=== PATIENT | female | born 1960 | race Caucasian/White ===

== ENCOUNTER 2019-10-24 14:05 | Emergency (ER) | payer MEDICAID, OTHER ==
[2019-10-24 14:28] LABS: ABS Basophils 0.1 10^3/ul (0-0.2); ABS Eosinophils 0.5 10^3/ul (0-0.6); ABS Monocytes 0.5 10^3/ul (0-0.8); ABS Neutrophils 9.5 10^3/ul (1.5-7.7); Hematocrit 45 % (35-47); Hemoglobin 15.4 g/dL (12.0-16.0); Lymphocyte % 8.5 %; Mean Corpuscular HGB Conc 34 g/dL (31-36); Mean Corpuscular Hemoglobin 33 pg (27-31); Mean Corpuscular Volume 97 fL (80-97); Platelet Count 263 10^3/uL (150-450); Red Blood Count 4.62 10^6 /uL (3.70-4.87); Red Cell Distribution Width 13 % (10-15); White Blood Count 11.5 10^3/uL (3.5-10.8)
[2019-10-24 14:44] LABS: Albumin 4.9 g/dL (3.2-5.2); BUN/Creatinine Ratio 22.7 (8-20); Calcium 9.8 mg/dL (8.6-10.3); EGFR African American 110.5 (>60); EGFR Non-African American 91.4 (>60); Globulin 2.4 g/dL (2-4); Total Bilirubin 1.5 mg/dL (0.2-1.0); Total Protein 7.3 g/dL (6.4-8.9)
[2019-10-24] MEDS ORDERED: hydrALAZINE IV* 20 MG/ML VIAL IV SLOW PU ONE (15:00)
--- NOTE | 2019-10-24 15:07 | ED ---
Back Pain - HPI Summary HPI Summary: The patient is a 59 y/o F presenting to [facility] with a chief complaint of sudden onset right rib/flank pain onset at 1030 this morning. She reports that initially the pain was in the left scapula while sitting at rest in her car after eating a cookie, but then it moved to the right flank area and subsided. The pain then severely returned and worsened as it was painful to touch and with sitting, but now the pain has waned to 2/10 in severity from 8/10. She denies CP, dysuria, or hematuria. She has not experienced this before. No history of renal disease or calculi. She states she felt that her symptoms were related to eating. PMHx: HTN (medication compliant). Nonsmoker, daily EtOH, no substance use. Medications reviewed. Allergies noted. Blood pressure in room: 205/107 mmHg (right), 199/118 mmHg (left). On repeat w appropriate cuff BP 150 systolic both arms. - History of Current Complaint Chief Complaint: EDFlankPain Stated Complaint: SIDE PAIN PER PT Time Seen by Provider: 10/24/19 14:14 Hx Obtained From: Patient Onset/Duration: Sudden Onset, Lasting Hours Onset/Duration: Started Hours Ago Timing: Lasting Hours Back Pain Location: Is Discrete @ - right flank Severity Initially: Severe Severity Currently: Mild Pain Intensity: 2 Pain Scale Used: 0-10 Numeric Character: Sharp Aggravating Symptom(s): Other - sitting, to touch Alleviating Symptom(s): Rest Associated Signs And Symptoms: Positive: Flank Pain - right, Other - left scapular pain; Negative: dysuria, hematuria, CP - Allergies/Home Medications Allergies/Adverse Reactions: Allergies Allergy/AdvReac Type Severity Reaction Status Date / Time No Known Allergies Allergy Verified 10/24/19 14:10 Home Medications: Home Medications Albuterol HFA INHALER* [Ventolin HFA Inhaler*] 2 puff INH Q4H PRN 10/24/19 [ History Confirmed 10/24/19] Fluticasone HFA 110 mcg(NF) [Flovent HFA 110 mcg(NF)] 2 puff INH BID 10/24/19 [ History Confirmed 10/24/19] Valsartan/HCTZ 320/25(NF) [Diovan Hct 320/25(NF)] 1 tab PO DAILY 10/24/19 [ History Confirmed 10/24/19] PMH/Surg Hx/FS Hx/Imm Hx Endocrine/Hematology History: Denies: Hx Diabetes Cardiovascular History: Reports: Hx Hypertension Denies: Hx Hypercholesterolemia History: Denies: Hx Renal Disease - Surgical History Surgical History: None Surgery Procedure, Year, and Place: none Infectious Disease History: No Infectious Disease History: Denies: Traveled Outside the [place] in Last 30 Days - Family History Known Family History: Negative: Renal Disease - Social History Alcohol Use: Daily Alcohol Amount: wine Hx Substance Use: No Substance Use Type: Reports: None Hx Tobacco Use: No Smoking Status (MU): Never Smoked Tobacco Review of Systems Negative: Chest Pain Negative: dysuria, hematuria Positive: Other - pain in the left shoulder moved to right flank All Other Systems Reviewed And Are Negative: Yes Physical Exam - Summary Physical Exam Summary: Constitutional: Well-developed, Well-nourished, Alert. (-) Distressed Skin: Warm, Dry HENT: Normocephalic; Atraumatic Eyes: Conjunctiva normal Neck: Musculoskeletal ROM normal neck. (-) JVD, (-) Stridor, (-) Nuchal rigidity Cardio: Rhythm regular, rate normal, Heart sounds normal; Intact distal pulses; Radial pulses are 2+ and symmetric. DP pulses 2+ (-) Murmur Pulmonary/Chest wall: Effort normal. (-) Respiratory distress, (-) Wheezes, (-) Rales Abd: Soft, (-) tenderness, (-) Distension, (-) Guarding, (-) Rebound Musculoskeletal: (-) Edema, (-) flank tenderness. Lymph: (-) Cervical adenopathy Neuro: Alert, Oriented x3 Psych: Mood and affect Normal Triage Information Reviewed: Yes Vital Signs On Initial Exam: Initial Vitals Temp Pulse Resp BP Pulse Ox 98.0 F 90 16 222/126 98 10/24/19 14:07 10/24/19 14:07 10/24/19 14:07 10/24/19 14:07 10/24/19 14:07 Vital Signs Reviewed: Yes Procedures - Sedation Patient Received Moderate/Deep Sedation with Procedure: No Diagnostics - Vital Signs Vital Signs Temp Pulse Resp BP Pulse Ox 10/24/19 14:07 98.0 F 90 16 222/126 98 - Laboratory Lab Results: Lab Results 10/24/19 10/24/19 Range/Units 14:22 14:22 WBC 11.5 H (3.5-10.8) 10^3/uL RBC 4.62 (3.70-4.87) 10^6 /uL Hgb 15.4 (12.0-16.0) g/dL Hct 45 (35-47) % MCV 97 (80-97) fL MCH 33 H (27-31) pg MCHC 34 (31-36) g/dL RDW 13 (10-15) % Plt Count 263 (150-450) 10^3/uL MPV 7.0 L (7.4-10.4) fL Neut % (Auto) 82.2 % Lymph % (Auto) 8.5 % [place] % (Auto) 4.5 % Eos % (Auto) 4.0 % Baso % (Auto) 0.8 % Absolute Neuts (auto) 9.5 H (1.5-7.7) 10^3/ul Absolute Lymphs (auto) 1.0 (1.0-4.8) 10^3/ul Absolute Monos (auto) 0.5 (0-0.8) 10^3/ul Absolute Eos (auto) 0.5 (0-0.6) 10^3/ul Absolute Basos (auto) 0.1 (0-0.2) 10^3/ul Absolute Nucleated RBC 0.0 10^3/ul Nucleated RBC % 0.0 Sodium 131 L (135-145) mmol/L Potassium 4.0 (3.5-5.0) mmol/L Chloride 98 L (101-111) mmol/L Carbon Dioxide 28 (22-32) mmol/L Anion Gap 5 (2-11) mmol/L BUN 15 (6-24) mg/dL Creatinine 0.66 (0.51-0.95) mg/dL Est GFR ( Amer) 110.5 (>60) Est GFR (Non-Af Amer) 91.4 (>60) BUN/Creatinine Ratio 22.7 H (8-20) Glucose 111 H (70-100) mg/dL Calcium 9.8 (8.6-10.3) mg/dL Total Bilirubin 1.50 H (0.2-1.0) mg/dL AST 106 H (13-39) U/L ALT 60 H (7-52) U/L Alkaline Phosphatase 91 (34-104) U/L Total Protein 7.3 (6.4-8.9) g/dL Albumin 4.9 (3.2-5.2) g/dL Globulin 2.4 (2-4) g/dL Albumin/Globulin Ratio 2.0 (1-3) Result Diagrams: 10/24/19 14:22 10/24/19 14:22 Lab Statement: Any lab studies that have been ordered have been reviewed, and results considered in the medical decision making process. - EKG 1449 Cardiac Rate: NL - 88 BPM EKG Rhythm: Sinus Rhythm Summary of EKG Findings: An EKG at 1449 reveals normal sinus rhythm at 88 BPM. Q waves in lead III and aVF. No STEMI. No previous to compare. ED physician has reviewed and interpreted this EKG. Re-Evaluation - Re-Evaluation First Eval Re-Evaluation Time: 15:20 Comment: Blood pressures in both arms recorded by primary nurse showing no change between sides; will administer Lisinopril. Second Eval Re-Evaluation Time: 16:35 Comment: Patient had episode of nausea and vomiting that she attributed to a cookie that she ate prior. Patient now drinking water denies nausea. Declined Zofran. No chest pain. Back Pain Course/Dx - Course Course Of Treatment: 59 y/o F w hx HTN p/w R rib/flank pain now resolved. - PE well appearing, no reproducible tenderness to back/flank. Patient states symptoms resolved. Did have episode of nausea after eating cookie (which she believed started event and had emesis x1 in ED). No CP. - CXR normal, EKG w/o e /o ischemia, trop neg x1 do not suspect ACS. Equal pulses and BP similar in both arms, given her well appearance and lack of current pain do not suspect dissection. UA w/o e/o hematuria to suggest stone. No RUQ tenderness to suggest GB pathology. Patient requesting to be started back on lisinopril as she likes it better, will send home on 10 mg. - Diagnoses Provider Diagnoses: Flank pain, Hypertension Discharge ED - Sign-Out/Discharge Documenting (check all that apply): Patient Departure - discharge - Discharge Plan Condition: Stable Disposition: HOME Prescriptions: Lisinopril TAB* [Prinivil TAB 10 MG*] 10 mg PO DAILY 30 Days #30 tab Patient Education Materials: Flank Pain (ED) Referrals: [facility] [Outside] - 3 Days Additional Instructions: You were seen in the emergency department for flank pain. Your x-ray did not show any evidence of pneumonia or abnormalities. Your heart enzymes are normal. You can take lisinopril for blood pressure. Please follow up with your primary care doctor in the next 2-3 days and return to the emergency department for worsening pain, chest pain, passing out or concerning symptoms. It was a pleasure taking care of you today. - Billing Disposition and Condition Condition: STABLE Disposition: Home - Attestation Statements Document Initiated by Joelle: Yes Documenting Scribe: Di Su Provider For Whom Joelle is Documenting (Include Credential): Dr. Atilio Stoner MD Scribe Attestation: Di Sheppard, scribed for Dr. Atilio Stoner MD on 10/25/19 at 1709. Scribe Documentation Reviewed: Yes Provider Attestation: The documentation as recorded by the Di child accurately reflects the service I personally performed and the decisions made by me, Dr. Atilio Stoner MD Status of Scribe Document: Viewed
[2019-10-24] MEDS ORDERED: Lisinopril TAB* 10 MG PO ONE (15:23)
[2019-10-24] MEDS ORDERED: Ondansetron TAB* 4 MG PO ONE (16:00)
[2019-10-24 16:18] LABS: Urine Appearance Clear; Urine Bilirubin Negative (Negative); Urine Blood Negative (Negative); Urine Color Yellow; Urine Glucose Negative (Negative); Urine Ketones Negative (Negative); Urine Nitrite Negative (Negative); Urine Protein Negative (Negative); Urine Specific Gravity 1.017 (1.010-1.030); Urine Urobilinogen Negative (Negative)
[2019-10-24 16:38] VITALS: BP 140/72
== END 2019-10-24 16:51 | disposition home or self-care (01) ==
LOC: ED 14:05
DX: R07.81 Pleurodynia (principal); M25.512 Pain in left shoulder; R11.2 Nausea with vomiting, unspecified; I10 Essential (primary) hypertension
CPT/HCPCS: 36415; 71046; 80053; 81003; 84484; 85025; 93005; 99283; A9270-GY; J0360

== ENCOUNTER 2020-11-10 10:26 | Inpatient (IN) ==
[2020-11-10 11:47] LABS: ABS Basophils 0.1 10^3/ul (0-0.2); ABS Lymphocytes 0.6 10^3/ul (1.0-4.8); ABS Neutrophils 12.3 10^3/ul (1.5-7.7); Eosinophil % 0.3 %; Hematocrit 35 % (35-47); Hemoglobin 12.3 g/dL (12.0-16.0); Lymphocyte % 4.4 %; Mean Corpuscular HGB Conc 35 g/dL (31-36); Mean Corpuscular Hemoglobin 33 pg (27-31); Mean Corpuscular Volume 95 fL (80-97); Mean Platelet Volume 7.1 fL (7.4-10.4); Platelet Count 198 10^3/uL (150-450); Red Cell Distribution Width 13 % (10-15); White Blood Count 14.1 10^3/uL (3.5-10.8)
[2020-11-10 12:05] LABS: Albumin 4.2 g/dL (3.2-5.2); BUN/Creatinine Ratio 15.1 (8-20); Calcium 9.3 mg/dL (8.6-10.3); EGFR African American 98.1 (>60); Globulin 2.9 g/dL (2-4); Potassium 3.2 mmol/L (3.5-5.0); Total Protein 7.1 g/dL (6.4-8.9); Uric Acid 4.2 mg/dL (2.3-6.6)
[2020-11-10 12:06] LABS: Albumin/Globulin Ratio 1.4 (1-3); C Reactive Protein 236.21 mg/L (<8.01)
[2020-11-10] MEDS ORDERED: NS 0.9% 1000 ml BAG 1,000 ML IV ONE (12:25)
[2020-11-10] MEDS ORDERED: Potassium Chlor 20 meq TAB.ER PO ONE (12:25)
[2020-11-10] MEDS ORDERED: Lidocaine 1% MPF 5 ML VIAL INJ ONE (12:57)
[2020-11-10 13:08] LABS: Erythrocyte Sed Rate 30 mm/Hr (0-29)
[2020-11-10 14:19] LABS: Body Fluid Source Synovial Fluid
[2020-11-10] MEDS ORDERED: ceFAZolin 2 GM PREMIX 2 GM/50 ML BAG IVPB ONE (15:27)
[2020-11-10 16:53] LABS: Body Fluid Mono 7 %
[2020-11-10] MEDS ORDERED: Morphine 4 MG/ML VIAL (1 ml) ONE (18:58)
[2020-11-10] MEDS: Morphine 4 MG/ML VIAL (1 ml) IV ONE ×2 (19:01→19:52)
[2020-11-10] MEDS ORDERED: Enoxaparin 40 MG/0.4 ML SYR SUBCUT SCH (21:00)
[2020-11-10 21:19] LABS: Magnesium 1.8 mg/dL (1.9-2.7)
[2020-11-10] MEDS: HYDROcodone/ACETAMIN 5/325 mg TAB PO PRN (21:37)
[2020-11-10] MEDS ORDERED: Magnesium Sulfate IV 1GM/100ML 1 GM/100 ML BAG IV ONE (22:09)
[2020-11-10] MEDS: NS 0.9% 1000 ml BAG 1,000 ML IV SCH (22:31)
[2020-11-11] MEDS: ceFAZolin 2 GM PREMIX 2 GM/50 ML BAG IVPB SCH ×4 (00:05→23:29)
[2020-11-11] MEDS: Albuterol HFA INHALER 8 gm MDI INH PRN ×4 (00:08→21:39)
[2020-11-11] MEDS: HYDROcodone/ACETAMIN 5/325 mg TAB PO PRN ×3 (03:36→21:39)
[2020-11-11 04:51] LABS: ABS Lymphocytes 0.3 10^3/ul (1.0-4.8); ABS Monocytes 0.7 10^3/ul (0-0.8); ABS Neutrophils 13.1 10^3/ul (1.5-7.7); Hematocrit 34 % (35-47); Hemoglobin 11.9 g/dL (12.0-16.0); Lymphocyte % 2.2 %; Mean Corpuscular HGB Conc 35 g/dL (31-36); Mean Corpuscular Hemoglobin 33 pg (27-31); Mean Corpuscular Volume 96 fL (80-97); Mean Platelet Volume 7.3 fL (7.4-10.4); Platelet Count 207 10^3/uL (150-450); Red Blood Count 3.56 10^6 /uL (3.70-4.87); Red Cell Distribution Width 13 % (10-15); White Blood Count 14.1 10^3/uL (3.5-10.8)
[2020-11-11 05:07] LABS: BUN/Creatinine Ratio 12.9 (8-20); Calcium 8.8 mg/dL (8.6-10.3); EGFR African American 102.9 (>60); EGFR Non-African American 85.1 (>60); Potassium 3.4 mmol/L (3.5-5.0)
[2020-11-11] MEDS: Mometasone 220 MCG MDI INH SCH (07:50)
[2020-11-11] MEDS ORDERED: HYDROcodone/ACETAMIN 5/325 mg TAB PO ONE (13:23)
[2020-11-11] MEDS ORDERED: HYDROcodone/ACETAMIN 5/325 mg TAB ONE (13:31)
[2020-11-11] MEDS ORDERED: Gadoteridol (CONTRAST) 279.3 MG/ML 10 ML IV ONE (14:07)
[2020-11-11] MEDS ORDERED: Morphine 2 MG/ML SYRINGE IV PRN (16:18)
[2020-11-11] MEDS ORDERED: Bupivacaine 0.25% SDV PF 10 ML VIAL INJ ONE (18:31)
[2020-11-11] MEDS ORDERED: Potassium Chlor 20 meq TAB.ER PO ONE (18:41)
[2020-11-11] MEDS ORDERED: Lidocaine 2% PF 5 ML VIAL ONE (19:27)
[2020-11-11] MEDS ORDERED: Propofol 10 MG/ML 20 ML BTL ONE (19:27)
[2020-11-11] MEDS ORDERED: Ondansetron 4 mg VIAL 2 MG/ML 2 ml VIAL ONE (19:27)
[2020-11-11] MEDS ORDERED: Dexamethasone IV 4 MG/ML VIAL 1 ml VIAL ONE (19:27)
[2020-11-11] MEDS ORDERED: HYDROmorphone 1 MG/1 ML SYRINGE ONE (19:33)
[2020-11-11] MEDS ORDERED: Naloxone 0.4 mg VIAL 0.4 mg/ml 1 ml VIAL IV PRN (20:29)
[2020-11-11] MEDS ORDERED: Ondansetron 4 mg VIAL 2 MG/ML 2 ml VIAL IV PRN (20:29)
[2020-11-11] MEDS ORDERED: HYDROmorphone 1 MG/1 ML SYRINGE IV PRN (20:29)
[2020-11-12 05:26] LABS: ABS Lymphocytes 0.2 10^3/ul (1.0-4.8); ABS Monocytes 0.6 10^3/ul (0-0.8); Hematocrit 32 % (35-47); Hemoglobin 11.1 g/dL (12.0-16.0); Lymphocyte % 1.7 %; Mean Corpuscular HGB Conc 35 g/dL (31-36); Mean Corpuscular Hemoglobin 33 pg (27-31); Mean Corpuscular Volume 96 fL (80-97); Mean Platelet Volume 7.5 fL (7.4-10.4); Platelet Count 232 10^3/uL (150-450); Red Blood Count 3.34 10^6 /uL (3.70-4.87); Red Cell Distribution Width 13 % (10-15); White Blood Count 14.9 10^3/uL (3.5-10.8)
[2020-11-12 05:49] LABS: Albumin 3.4 g/dL (3.2-5.2); Albumin/Globulin Ratio 1.1 (1-3); BUN/Creatinine Ratio 14.1 (8-20); Calcium 8.7 mg/dL (8.6-10.3); EGFR African American 101.3 (>60); EGFR Non-African American 83.7 (>60); Magnesium 2.2 mg/dL (1.9-2.7); Potassium 3.4 mmol/L (3.5-5.0); Total Protein 6.4 g/dL (6.4-8.9)
[2020-11-12] MEDS: ceFAZolin 2 GM PREMIX 2 GM/50 ML BAG IVPB SCH ×2 (08:27→16:33)
[2020-11-12] MEDS: NS 0.9% 1000 ml BAG 1,000 ML IV SCH (08:27)
[2020-11-12] MEDS: Mometasone 220 MCG MDI INH SCH (09:45)
[2020-11-12] MEDS: Albuterol HFA INHALER 8 gm MDI INH PRN ×3 (09:47→23:13)
[2020-11-12] MEDS ORDERED: Enoxaparin 40 MG/0.4 ML SYR SUBCUT SCH (10:00)
[2020-11-12] MEDS: HYDROcodone/ACETAMIN 5/325 mg TAB PO PRN ×2 (17:06→23:13)
[2020-11-12] MEDS ORDERED: Potassium Chlor 20 meq TAB.ER PO ONE (18:03)
[2020-11-13] MEDS: ceFAZolin 2 GM PREMIX 2 GM/50 ML BAG IVPB SCH ×3 (00:10→16:45)
[2020-11-13] MEDS: HYDROcodone/ACETAMIN 5/325 mg TAB PO PRN ×3 (05:09→18:25)
[2020-11-13 05:54] LABS: ABS Lymphocytes 0.9 10^3/ul (1.0-4.8); ABS Monocytes 1.1 10^3/ul (0-0.8); ABS Neutrophils 9.5 10^3/ul (1.5-7.7); Eosinophil % 0.1 %; Hematocrit 28 % (35-47); Hemoglobin 9.9 g/dL (12.0-16.0); Lymphocyte % 8.1 %; Mean Corpuscular HGB Conc 35 g/dL (31-36); Mean Corpuscular Hemoglobin 33 pg (27-31); Mean Corpuscular Volume 96 fL (80-97); Platelet Count 243 10^3/uL (150-450); Red Blood Count 2.96 10^6 /uL (3.70-4.87); Red Cell Distribution Width 13 % (10-15); White Blood Count 11.6 10^3/uL (3.5-10.8)
[2020-11-13 06:09] LABS: BUN/Creatinine Ratio 18.3 (8-20); Calcium 8.4 mg/dL (8.6-10.3); EGFR Non-African American 101.6 (>60); Potassium 3.4 mmol/L (3.5-5.0)
[2020-11-13] MEDS ORDERED: Potassium Chlor 20 meq TAB.ER PO ONE (07:12)
[2020-11-13 08:04] LABS: C Reactive Protein 178.75 mg/L (<8.01)
[2020-11-13] MEDS: Albuterol HFA INHALER 8 gm MDI INH PRN ×3 (08:40→19:23)
[2020-11-13] MEDS: Mometasone 220 MCG MDI INH SCH (08:40)
[2020-11-13] MEDS: Enoxaparin 40 MG/0.4 ML SYR SUBCUT SCH (12:30)
[2020-11-14] MEDS: ceFAZolin 2 GM PREMIX 2 GM/50 ML BAG IVPB SCH ×2 (00:02→07:50)
[2020-11-14] MEDS: HYDROcodone/ACETAMIN 5/325 mg TAB PO PRN ×2 (00:03→11:26)
[2020-11-14 04:32] LABS: ABS Eosinophils 0.1 10^3/ul (0-0.6); ABS Monocytes 0.9 10^3/ul (0-0.8); ABS Neutrophils 6.2 10^3/ul (1.5-7.7); Eosinophil % 1.1 %; Hematocrit 27 % (35-47); Hemoglobin 9.5 g/dL (12.0-16.0); Lymphocyte % 11.9 %; Mean Corpuscular HGB Conc 36 g/dL (31-36); Mean Corpuscular Hemoglobin 34 pg (27-31); Mean Corpuscular Volume 95 fL (80-97); Mean Platelet Volume 6.5 fL (7.4-10.4); Platelet Count 282 10^3/uL (150-450); Red Blood Count 2.79 10^6 /uL (3.70-4.87); Red Cell Distribution Width 13 % (10-15); White Blood Count 8.3 10^3/uL (3.5-10.8)
[2020-11-14 04:49] LABS: BUN/Creatinine Ratio 16.1 (8-20); Calcium 8.6 mg/dL (8.6-10.3); EGFR African American 118.4 (>60); EGFR Non-African American 97.9 (>60); Potassium 3.5 mmol/L (3.5-5.0)
[2020-11-14] MEDS: Mometasone 220 MCG MDI INH SCH (07:47)
[2020-11-14 11:13] VITALS: BP 179/89
[2020-11-14] MEDS: Enoxaparin 40 MG/0.4 ML SYR SUBCUT SCH (11:28)
[2020-11-14] MEDS ORDERED: Iohexol 350 (CONTRAST) 500 ML MDV IV ONE (11:53)
[2020-11-14] MEDS ORDERED: Furosemide 20 mg/2 ml IV VIAL IV SLOW PU ONE (14:01)
== END 2020-11-14 14:40 | disposition home or self-care (01) | DRG 313 ==
LOC: SSU 10:26 → ED 10:26 → SSU 22:18
PROVIDERS: ADMIT Student in an Organized Health Care Education/Training Program; ATTEND Orthopaedic Surgery Hand Surgery

== ENCOUNTER 2023-06-10 10:12 | Observation (INO) ==
[~2023-06-10 10:12] MED LIST: Buffered Lidocaine 1% SYRIN 1 ml INTRADERM ONE; HYDROcodone/ACETAMIN 5/325 mg TAB PO PRN; Lactated Ringers 1000 ml BAG 1,000 ML IV SCH; Metoclopramide 5 MG/ML VIAL (10 mg) IV PRN; Naloxone 0.4 mg VIAL 0.4 mg/ml 1 ml VIAL IV PRN; Ondansetron 4 mg VIAL 2 MG/ML 2 ml VIAL IV PRN; ROPIVACAINE 5 MG/ML 30 ML BTL (0.5%) ONE; ceFAZolin 2 GM in NS PREMIX 2 GM/100 ML BAG IVPB ONE; fentaNYL 100 mcg/2 ml 50 MCG/ML VIAL IV PRN
[2023-06-10] MEDS ORDERED: Midazolam 2 mg/2 ml VIAL 1 mg/ml 2 ml VIAL (2 mg) ONE (11:24)
[2023-06-10] MEDS ORDERED: Lidocaine 2% PF 5 ML VIAL ONE ×2 (11:24→12:41)
[2023-06-10] MEDS ORDERED: fentaNYL 100 mcg/2 ml 50 MCG/ML VIAL ONE (11:24)
[2023-06-10] MEDS ORDERED: Midazolam 5 mg/5 ml VIAL 1 mg/ml 5 ml VIAL (5 mg) ONE (11:49)
[2023-06-10 12:11] LABS: Rapid COVID-19 Molecular Undetected (Undetected)
[2023-06-10] MEDS ORDERED: Rocuronium 50 mg VIAL 10 mg/ml 5 ml VIAL (50 mg) ONE (12:41)
[2023-06-10] MEDS ORDERED: Propofol 10 MG/ML 20 ML BTL ONE (12:41)
[2023-06-10] MEDS ORDERED: fentaNYL 250 mcg/5 ml 50 MCG/ML 5 ml VIAL (250 MCG) ONE (13:31)
[2023-06-10] MEDS ORDERED: HYDROmorphone 0.5 MG/0.5 ML SYRINGE ONE (13:40)
[2023-06-10] MEDS ORDERED: Ondansetron 4 mg VIAL 2 MG/ML 2 ml VIAL ONE (13:42)
[2023-06-10] MEDS ORDERED: Dexamethasone IV 4 MG/ML VIAL 1 ml VIAL ONE (13:42)
[2023-06-10] MEDS ORDERED: Ondansetron ODT 4 mg TAB 4 MG TAB PO PRN (13:50)
[2023-06-10] MEDS ORDERED: Morphine 2 MG/ML SYRINGE IV PRN (13:50)
[2023-06-10] MEDS ORDERED: Lactulose 30 ml UDC PO PRN (13:50)
[2023-06-10] MEDS ORDERED: Ondansetron 4 mg VIAL 2 MG/ML 2 ml VIAL IV PRN (13:50)
[2023-06-10] MEDS ORDERED: Magnesium Hydroxide LIQ 30 ML UDC PO PRN (13:50)
[2023-06-10] MEDS ORDERED: ceFAZolin 1 GM ADVAN 1 GM in NS 0.9% 50 ML 50 ML IVPB SCH (14:00)
[2023-06-10] MEDS: Lactated Ringers 1000 ml BAG 1,000 ML IV SCH (17:24)
[2023-06-10] MEDS: ceFAZolin 1 GM ADVAN 1 GM in NS 0.9% 50 ML 50 ML IVPB SCH (22:00)
[2023-06-10] MEDS: Magnesium Hydroxide LIQ 30 ML UDC PO SCH (22:52)
[2023-06-11] MEDS: Lactated Ringers 1000 ml BAG 1,000 ML IV SCH (03:31)
[2023-06-11 05:48] LABS: Hematocrit 33.3 % (35-45); Hemoglobin 11.6 g/dL (11.5-14.3); Mean Platelet Volume 7.3 fL (7.5-11.2); Platelet Count 227 10^3/uL (150-450)
[2023-06-11 06:03] LABS: Calcium 8.6 mg/dL (8.6-10.3); Creatinine, Serum 0.68 mg/dL (0.51-0.95); Potassium 4.2 mmol/L (3.5-5.0); eGFR CKD-EPI 97.8 (>60)
[2023-06-11] MEDS: ceFAZolin 1 GM ADVAN 1 GM in NS 0.9% 50 ML 50 ML IVPB SCH ×2 (06:27→13:17)
[2023-06-11] MEDS: Magnesium Hydroxide LIQ 30 ML UDC PO SCH (08:22)
[2023-06-11] MEDS ORDERED: Vitamin THERAPEUTIC TAB PO SCH (09:00)
[2023-06-11 14:16] VITALS: BP 154/78
== END 2023-06-11 15:20 | disposition home or self-care (01) ==
LOC: SSU 10:12 → OR 10:12
PROVIDERS: ADMIT Orthopaedic Surgery Adult Reconstructive Orthopaedic Surgery; ATTEND Orthopaedic Surgery Adult Reconstructive Orthopaedic Surgery